=== PATIENT | male | born 1945 | race Caucasian/White ===

== ENCOUNTER 2017-04-17 14:59 | Emergency (ER) | payer MEDICARE, OTHER ==
[~2017-04-17] VITALS: Ht 175.3 cm; Wt 60.0 kg
[~2017-04-17 14:59] MED LIST: FOSI10TA PO; PREV30CA36 PO
[2017-04-17 15:29] VITALS: BP 154/83; PULSE 66; RESP 16; TEMP 97.1; O2SAT 97
--- NOTE | 2017-04-17 18:11 | PD ---
HPI Chief Complaint: Laceration Time Seen by Provider: 18:10 Travel History International Travel<30 days: No Contact w/Intl Traveler<30days: No Traveled to known affect area: No History of Present Illness HPI 71-year-old male presents to the department with injury to the distal left index finger. She was power washing his patio when he reached out with his left hand and accidentally pulled the trigger on the palmar washer injuring his distal left finger. 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 Bleeding is currently controlled although was quite extensive earlier according to the patient. He denies distal numbness or loss of function. Patient states the biomass power plant manager had clean tap Water in it. Patient pain is about a 4 out of 10. Patient has no known drug allergies. Last tetanus 5 years ago. PFSH Past Medical History Cancer: No Cardiovascular Problems: No Diabetes: Yes (pt states pre diabetic) Diminished Hearing: No Endocrine: Yes Genitourinary: No Hepatitis: No Hiatal Hernia: No Hypertension: Yes Immune Disorder: No Inguinal Hernia: Yes Musculoskeletal: No Neurologic: No Psychiatric: No Reproductive: No Respiratory: No Immunizations Current: No (UNKNOWN) Thyroid Disease: No Past Surgical History Abdominal Surgery: Yes (anal stenosis flap advancement) AICD: No Joint Replacement: No Pacemaker: No Social History Alcohol Use: No Tobacco Use: No Substance Use: No Allergies-Medications (Allergen,Severity, Reaction): Coded Allergies: No Known Allergies (Unverified , 04/17/17) Reported Meds & Prescriptions Reported Meds & Active Scripts Active Bactrim DS (Sulfamethoxazole-Trimethoprim) 800-160 Mg Tab 1 Tab PO BID Reported Lisinopril 10 Mg Tab 10 Mg PO HS Prevacid (Lansoprazole) 30 Mg Capdr 30 Mg PO HS Review of Systems Except as stated in HPI: all other systems reviewed are Neg General / Constitutional: No: Fever Eyes: No: Visual changes HENT: No: Headaches Cardiovascular: No: Chest Pain or Discomfort Respiratory: No: Shortness of Breath Gastrointestinal: No: Abdominal Pain Genitourinary: No: Dysuria Musculoskeletal: No: Pain Skin: No Rash Neurologic: No: Weakness Psychiatric: No: Depression Endocrine: No: Polydipsia Hematologic/Lymphatic: No: Easy Bruising Physical Exam Narrative GENERAL: Patient is in no acute distress. SKIN: Warm and dry. Patient has a 1 and 1/2 cm open wound to the left distal lateral palmar surface of the index finger. There is no involvement of the nailbed. Does not cross over the joint line. HEAD: Atraumatic. Normocephalic. EYES: Pupils equal and round. No scleral icterus. No injection or drainage. ENT: No nasal bleeding or discharge. Mucous membranes pink and moist. Pharynx is clear. Airway is patent. NECK: Trachea midline. No JVD. Supple and nontender. CARDIOVASCULAR: Regular rate and rhythm. RESPIRATORY: No accessory muscle use. Clear to auscultation. Breath sounds equal bilaterally. MUSCULOSKELETAL: Extremities without clubbing, cyanosis, or edema. No obvious deformities. Capillary refill is brisk distal to the wound. No tendon injury is suspected. NEUROLOGICAL: Awake and alert. No obvious cranial nerve deficits. Motor grossly within normal limits. Five out of 5 muscle strength in the arms and legs. Normal speech. PSYCHIATRIC: Appropriate mood and affect; insight and judgment normal. Data Data Last Documented VS Vital Signs Date Time Temp Pulse Resp B/P (MAP) Pulse Ox O2 Delivery O2 Flow Rate FiO2 04/17/17 15:29 97.1 66 16 154/83 (106) 97 Room Air Orders Orders Lidocaine 1% Inj (Xylocaine 1% Inj) (04/17/17 18:15) MDM Medical Decision Making Medical Screen Exam Complete: Yes Emergency Medical Condition: Yes Differential Diagnosis Laceration. coal washer tender accident. Puncture wound. Narrative Course Patient is medically stable at time of exam. Laceration is repaired after digital block is placed.. Patient is given Bactrim DS twice a day 7 days. Wound care is discussed with the patient. Patient follow-up with the doctor Duc, the hand surgeon to ensure proper healing. Sutures to remain in place for 7-10 days. Patient can ice the finger as well as use Tylenol and ibuprofen as needed. Procedures Procedure Narrative LACERATION LOCATION: Left distal index LENGTH: 1.5 cm NUMBER OF STITCHES/CHUCHO: 2 simple sutures REPAIR: The area of the laceration was prepped with Betadine and sterilely draped. Digital block is placed of 1% lidocaine without epi. The wound was copiously irrigated and explored without evidence of foreign body, tendon injury or neurovascular injury. The wound was closed using 5-0 Ethilon. This was a single layer repair. A sterile dressing was applied. The patient was advised to keep the dressing clean and dry. Patient tolerated the procedure well. Diagnosis Primary Impression: High-pressure injection injury of finger of left hand Qualified Codes: S69.82XA - Other specified injuries of left wrist, hand and finger(s), initial encounter; W29.8XXA - Contact with other powered powered hand tools and household machinery, initial encounter Referrals: Gonzalo Welsh MD call for appointment Patient Instructions: General Instructions Additional Instructions: Laceration is repaired after digital block is placed.. Patient is given Bactrim DS twice a day 7 days. Wound care is discussed with the patient. Patient follow-up with the doctor Duc, the hand surgeon to ensure proper healing. Sutures to remain in place for 7-10 days. Patient can ice the finger as well as use Tylenol and ibuprofen as needed. Med/Other Pt SpecificInfo: Prescription(s) given Scripts Sulfamethoxazole-Trimethoprim (Bactrim DS) 800-160 Mg Tab 1 TAB PO BID for Infection, #14 TAB 0 Refills Prov: John Hall MD 04/17/17 Disposition: 01 DISCHARGE HOME Condition: Stable Kurtis Calix Apr 17, 2017 18:11
[2017-04-17] MEDS ORDERED: LIDOCAINE HCL 1% 30 ML VIAL INFIL ONE (18:15)
[2017-04-17] MEDS ORDERED: LISI10TA3 PO (18:37)
[2017-04-17] MEDS ORDERED: PREV30CA11 PO (18:37)
[2017-04-17] MEDS ORDERED: BACT800T5 PO (19:00)
== END 2017-04-17 19:23 | disposition home or self-care (01) ==
LOC: PHED 14:59 → PHEFT 19:23
DX: S69.82XA Other specified injuries of left wrist, hand and finger(s), initial encounter (principal); W29.8XXA Contact with other powered hand tools and household machinery, initial encounter; I10 Essential (primary) hypertension; R73.03 Prediabetes
CPT/HCPCS: 12001